=== PATIENT | female | born 1950 | race Caucasian/White ===

== ENCOUNTER 2018-06-21 10:36 | Inpatient (IN) | payer MEDICARE ==
[2018-06-21] VITALS (10 sets, daily range): BP systolic 89–127; BP diastolic 47–72
[~2018-06-21] VITALS: Ht 162.6 cm; Wt 102.1 kg
--- NOTE | ~2018-06-21 | DS ---
PATIENT:AILYN DALEY :50 MEDICAL RECORD: [id number] DISCHARGE SUMMARY ADMISSION DATE: 06/21/18 DISCHARGE DATE: 06/25/18 PRINCIPAL DIAGNOSES: Ruptured appendicitis with localized peritonitis. OTHER DIAGNOSES: Include neuropathy, hypercholesterolemia, hypothyroidism on replacement therapy, hypertension, gastroesophageal reflux, osteoporosis. HOSPITAL COURSE: The patient was admitted through the Emergency Room. She underwent a laparoscopic appendectomy. She was maintained on IV antibiotics. The drain has been removed. She is being dismissed home on Levaquin, Flagyl, Colace, and Blackfoot. I will see her in the office in 1 week to remove her kannan. TRANSINT:[id number] Voice Confirmation ID: [id number] DOCUMENT ID: [id number] MARIE HERNÁNDEZ MD at 1645 CC: [id number] DICTATION DATE: 06/25/18 185 CYCLE COUNTER: 06/26/18 0704 DIS IN 06/25/[address] [facility] [address] [place] [address]
--- NOTE | ~2018-06-21 | MORECARE ---
CASE MANAGEMENT DISCHARGE SUMMARY PATIENT: AILYN DALEY UNIT: [id number] ADM DATE: 06/21/18 AGE: 67 : 50 SEX: F ROOM/BED: D.2230 AUTHOR: MICHAELDOC PHYSICIAN: REFERRING PHYSICIAN: MARIE HERNÁNDEZ MD DATE OF SERVICE: 06/23/18 Discharge Plan Patient Name: AILYN DALEY Facility: [facility]:[place] : 1950 Planned Disposition: Home Anticipated Discharge Date: Discharge Date: Expected LOS: Initial Reviewer: [email or web address] Initial Review Date: 06/23/2018 Generated: 06/23/18 3:37 pm Comments DCP- Discharge Planning Updated by [email or web address]: Lynette Nichole on 06/23/18 1:[address] Patient Name: AILYN DALEY Admission Status: ER Accout number: [id number] Admission Date: 06-21-2018 : 1950 Admission Diagnosis:UNSPECIFIED APPENDICITIS Attending: MARIE HERNÁNDEZ Current LOS: 2 Anticipated DC Date: Planned Disposition: Home Primary Insurance: MEDICARE A & B Discharge Planning Comments: CM met with patient and her to discuss discharge planning. They have travelled her from [place] to visit their son while he was having an operation. Their son is home now and doing well. Patient states she is independent with all ADL's and IADL's. States she lives with her . States they drove their RV here. Declines any discharge needs at this time. CM will continue to follow and assist with discharge planning/needs. Certified Adapted Physical Educator: Lynette Nichole DCPIA - Discharge Planning Initial Assessment Updated by [email or web address]: Lynette Nichole on 06/23/18 2:28 pm * Is the patient Alert and Oriented? Yes * PCP Dr. Gay Rodriguez in [facility] * Preadmission Environment Home with Family * ADLs Independent * Equipment Cane Other Wheelchair * Other Equipment Battery operated wheelchair * List name and contact numbers for known caregivers / representatives who currently or will assist patient after discharge: Alexis farrar - [phone] * Verbal permission to speak to the caregivers and representatives has been obtained from the patient. Yes * Community resources currently utilized None * Additional services required to return to the preadmission environment? No * Can the patient safely return to the preadmission environment? Yes * Has this patient been hospitalized within the prior 30 days at any hospital? No Last DP export: 06/23/18 1:30 Patient Name: AILYN DALEY Page 11352 at 1437 All edits/amendments must be made on the electronic document DICTATION DATE: 06/23/181436 OPTOMECHANICAL ENGINEER: RICH 06/23/181436 RPT#: [id number] DC DATE: STATUS: ADM IN [facility] [address] [place] [address] END OF REPORT
--- NOTE | ~2018-06-21 | MORECARE ---
CASE MANAGEMENT DISCHARGE SUMMARY PATIENT: AILYN DALEY UNIT: [id number] ADM DATE: 06/21/18 AGE: 67 : 50 SEX: F ROOM/BED: D.2230 AUTHOR: MICHAELDOC PHYSICIAN: REFERRING PHYSICIAN: MARIE HERNÁNDEZ MD DATE OF SERVICE: 06/26/18 Discharge Plan Patient Name: AILYN DALEY Facility: [facility]:[place] : 1950 Planned Disposition: Home Anticipated Discharge Date: Discharge Date: 06/25/2018 Expected LOS: 0 Initial Reviewer: [email or web address] Initial Review Date: 06/23/2018 Generated: 06/26/18 10:55 am Comments DCP- Discharge Planning Updated by [email or web address]: Lynette Nichole on 06/23/18 1:[address] Patient Name: AILYN DALEY Admission Status: ER Accout number: [id number] Admission Date: 06-21-2018 : 1950 Admission Diagnosis:UNSPECIFIED APPENDICITIS Attending: MARIE HERNÁNDEZ Current LOS: 2 Anticipated DC Date: Planned Disposition: Home Primary Insurance: MEDICARE A & B Discharge Planning Comments: CM met with patient and her to discuss discharge planning. They have travelled her from [place] to visit their son while he was having an operation. Their son is home now and doing well. Patient states she is independent with all ADL's and IADL's. States she lives with her . States they drove their RV here. Declines any discharge needs at this time. CM will continue to follow and assist with discharge planning/needs. Heel Coverer: Lynette Nichole DCPIA - Discharge Planning Initial Assessment Updated by [email or web address]: Lynette Nichole on 06/23/18 2:28 pm * Is the patient Alert and Oriented? Yes * PCP Dr. Gay Rodriguez in [facility] * Preadmission Environment Home with Family * ADLs Independent * Equipment Cane Other Wheelchair * Other Equipment Battery operated wheelchair * List name and contact numbers for known caregivers / representatives who currently or will assist patient after discharge: Alexis farrar - [phone] * Verbal permission to speak to the caregivers and representatives has been obtained from the patient. Yes * Community resources currently utilized None * Additional services required to return to the preadmission environment? No * Can the patient safely return to the preadmission environment? Yes * Has this patient been hospitalized within the prior 30 days at any hospital? No Last DP export: 06/23/18 1:37 Patient Name: AILYN DALEY Page [id number] at 0955 All edits/amendments must be made on the electronic document DICTATION DATE: 06/26/18953 SAUSAGE MEAT TRIMMER: RICH 06/26/18953 RPT#: [id number] DC DATE:06/25/18 STATUS: DIS IN [facility] [address] [place] [address] END OF REPORT
--- NOTE | ~2018-06-21 | MORECARE ---
CASE MANAGEMENT DISCHARGE SUMMARY PATIENT: AILYN DALEY UNIT: [id number] ADM DATE: 06/21/18 AGE: 67 : 50 SEX: F ROOM/BED: D.2230 AUTHOR: ARCELIA RODRIGUEZ PHYSICIAN: REFERRING PHYSICIAN: MARIE HERNÁNDEZ MD DATE OF SERVICE: 06/23/18 Discharge Plan Patient Name: AILYN DALEY [facility] : 1950 Planned Disposition: Home Anticipated Discharge Date: Discharge Date: Expected LOS: Initial Reviewer: [email or web address] Initial Review Date: 06/23/2018 Generated: 06/23/18 3:30 pm DCPIA - Discharge Planning Initial Assessment Updated by [email or web address]: Lynette Nichole on 06/23/18 2:28 pm * Is the patient Alert and Oriented? Yes * PCP Dr. Gay Rodriguez in [facility] * Preadmission Environment Home with Family * ADLs Independent * Equipment Cane Other Wheelchair * Other Equipment Battery operated wheelchair * List name and contact numbers for known caregivers / representatives who currently or will assist patient after discharge: Alexis [facility] [phone] * Verbal permission to speak to the caregivers and representatives has been obtained from the patient. Yes * Community resources currently utilized None * Additional services required to return to the preadmission environment? No * Can the patient safely return to the preadmission environment? Yes * Has this patient been hospitalized within the prior 30 days at any hospital? No Patient Name: AILYN DALEY Page 39080 at 1430 All edits/amendments must be made on the electronic document DICTATION DATE: 06/23/181428 HULL LINE CREW MEMBER: RICH 06/23/18 142 RPT#: [id number] DC DATE: STATUS: ADM IN [facility] [address] [place] [address] END OF REPORT
--- NOTE | ~2018-06-21 | OP ---
PATIENT NAME: AILYN DALEY MEDICAL RECORD: [id number] :50 LOCATION:D.MS [place]30 ADMISSION DATE:06/21/18 SURGEON: MARIE HERNÁNDEZ MD DATE OF OPERATION: 06/21/2018 PREOPERATIVE DIAGNOSIS: Acute appendicitis. POSTOPERATIVE DIAGNOSES: 1. Gangrenous acute appendicitis with rupture and contamination. 2. Extensive intraabdominal adhesions. PROCEDURE: Diagnostic laparoscopy with conversion to exploratory laparotomy and open appendectomy. SURGEON: Marie Hernández MD PUBLIC HEALTH ASSISTANT: None. BLOOD LOSS: 200 cc. ANESTHESIA: General. COMPLICATIONS: None. DRAINS: Times one (19-Jordanian fully fluted round closed system drain). OPERATIVE FINDINGS: Upon entering the abdomen with the laparoscope, I identified extensive intraabdominal adhesions and it was going to be fruitless to continue further with a laparoscopic approach and perhaps hazards to do so, I elected to convert to an exploratory laparotomy at that time. OPERATIVE COURSE: The patient was conveyed to the operating room urgently on 06/21/2018. General anesthesia was induced by the anesthesia staff. The abdomen was sterilely prepped and draped. A small skin steve was accomplished in the left upper quadrant. A Veress needle was inserted through the skin steve into the peritoneal cavity. CO2 insufflation was begun. Once a sufficient pneumoperitoneum had been achieved, a 5-mm trocar was inserted through an incision in the left lower quadrant. During insertion of the trocar, I got a carmen of air back when I opened up the valve and then inserted the laparoscope and insufflated the abdomen. I identified extensive intraabdominal adhesions and I could identify immediately that it was going to be fruitless to continue further. The trocar was removed. A lower midline incision was accomplished. I entered the peritoneal cavity sharply. I then went about an extensive adhesiolysis. The adhesiolysis took 42 minutes. Most of the adhesions were grade I and grade II adhesions. There was some bruising of the bowel. Once I had freed up all the adhesions, I ran the accessible portion of the bowel and it appears that this was from the ligament of Treitz to the ileocecal valve. I identified the appendix. I took down the mesoappendix with the Super Jaw EnSeal device. Some omentum that was covered in exudate was removed also in a piecemeal fashion with the Super Jaw EnSeal device. I then stapled across the cecum with an Endo-TANESHA type stapler utilizing blue loads. The appendix was then sent to pathology. I irrigated in the pelvis. There were small pieces of fecal material that I could see in the irrigant. This is worrisome as this was a ruptured appendicitis and there obviously was some contamination with fecal material. I ran the small bowel again 3 more times. There was some bruised OPERATIVE REPORT [id number] THUY,AILYN areas on the small bowel, but I noted no enterotomies, no seromyotomies and no leakage of enteral contents. Visualized portion of the colon were normal with the exception of an inflamed cecum. I irrigated some more and aspirated. There was no bleeding. I ensured that the small bowel was not twisted on its mesentery. I brought out a 19-Jordanian closed suction drain in the left lower quadrant. It was placed down into the pelvis. The drain was sutured to skin with a 2-0 nylon. The trocar site was then closed around the drain with a single 3-0 Vicryl suture. The midline fascia was closed with a running looped #1 PDS in a running horizontal mattress fashion. The subdermis was approximated with interrupted 3-0 Vicryls. The skin was approximated with metallic clips that were widely spaced. A sterile dressing was applied. The patient was then extubated and conveyed to post-anesthesia care unit where she was in stable condition. Due to the high risk of a postoperative abscess and postoperative complications, the patient will be admitted to the hospital and started on intravenous antibiotics. TRANSINT:[id number] Voice Confirmation ID: [id number] DOCUMENT ID: [id number] 06/25/2018 Edited to correct vinyl welder and fabricator errors, [email or web address]. MARIE HERNÁNDEZ MD at 1853 CC: [id number] DICTATION DATE: 06/21/182121 GREENHOUSE ASSISTANT: 06/22/[address] [facility] [address] [place] [address]
[2018-06-21] MEDS ORDERED: ZOCOR20 MG PO (10:43)
[2018-06-21] MEDS ORDERED: TIROSINT112 MCG PO (10:43)
[2018-06-21] MEDS ORDERED: NEURONTIN 400400 MG PO (10:43)
[2018-06-21] MEDS ORDERED: ROCALTROL0.5 MCG PO (10:43)
[2018-06-21] MEDS ORDERED: TOPROL XL50 MG PO (10:43)
[2018-06-21] MEDS ORDERED: BAYER CHEWABLE81 MG PO (10:44)
[2018-06-21] MEDS ORDERED: OMEPRAZOLE40 MG PO (10:44)
[2018-06-21] MEDS ORDERED: FLECAINIDE ACE100 MG PO (10:44)
[2018-06-21 11:15] LABS: BASOPHILS 0.1 % (0-2); EOSINOPHILS 0.2 % (0-7); HEMATOCRIT 38.4 % (36.0-48.0); HEMOGLOBIN 13.1 g/dL (12-16); IMMATURE GRANULOCYTES 0.3 % (0-5); MCH 30.5 pg (26.0-34.0); MCHC 34.1 g/dL (31.0-37.0); MCV 89.3 fL (80.0-100.0); MEAN PLATELET VOLUME 10.6 fL (7.4-10.4); NEUTROPHILS 81.4 % (40-80); PLATELET COUNT 216 10x3/uL (130-400); RDW 14.4 % (11.5-14.5); WBC 15.9 10x3/uL (4.8-10.8)
[2018-06-21 11:22] LABS: APPEARANCE HAZY (CLEAR); BILIRUBIN NEGATIVE (NEGATIVE); COLOR YELLOW (YELLOW); GLUCOSE NEGATIVE (NEGATIVE); KETONE SMALL mg/dL (NEGATIVE); NITRITE NEGATIVE (NEGATIVE); PROTEIN 1+ mg/dL (NEGATIVE); UROBILINOGEN NORMAL (NORMAL)
[2018-06-21 11:24] LABS: AMORPHOUS SEDIMENT <1+ /lpf (NONE SEEN); BACTERIA FEW /hpf (NONE SEEN); EPITHELIAL CELLS OCC /hpf (0-5); WHITE CELLS - URINE 0-5 /hpf (0-5)
[2018-06-21 11:34] LABS: ALBUMIN 3.4 g/dL (3.4-5.0); ALKALINE PHOSPHATASE 66 U/L (46-116); ALT (SGPT) 19 U/L (10-68); BILIRUBIN - TOTAL 1.25 mg/dL (0.2-1.3); CALC OSMOLALITY 267 mosm/kg (275-300); CALCIUM 8.2 mg/dL (8.5-10.1); CARBON DIOXIDE 19.7 mmol/L (21.0-32.0); CHLORIDE - SERUM 98 mmol/L (98-107); CREATININE - SERUM 1.5 mg/dL (0.6-1.3); GLUCOSE 105 mg/dL (74-106); POTASSIUM - SERUM 3.3 mmol/L (3.5-5.1); PROTEIN - SERUM 7.5 g/dL (6.4-8.2); SODIUM 132 mmol/L (136-145); UREA NITROGEN 22 mg/dL (7-18); eGFR NON AFRICAN AMERICAN 37 mL/min (90-120)
[2018-06-21 11:37] LABS: AMYLASE - SERUM 27 U/L (25-115); LIPASE 75 U/L (73-393)
[2018-06-21 11:38] LABS: TROPONIN-I < 0.017 ng/mL (0.000-0.060)
[2018-06-22] VITALS (9 sets, daily range): BP systolic 94–130; BP diastolic 53–76
[2018-06-22 07:43] LABS: BASOPHILS 0 % (0-2); EOSINOPHILS 0 % (0-7); HEMATOCRIT 35.3 % (36.0-48.0); HEMOGLOBIN 11.5 g/dL (12-16); IMMATURE GRANULOCYTES 0.2 % (0-5); LYMPHOCYTES 3.8 % (15-50); MCH 29.5 pg (26.0-34.0); MCHC 32.6 g/dL (31.0-37.0); MCV 90.5 fL (80.0-100.0); MEAN PLATELET VOLUME 11.1 fL (7.4-10.4); MONOCYTES 4.6 % (2-11); NEUTROPHILS 91.4 % (40-80); PLATELET COUNT 184 10x3/uL (130-400); RDW 14.6 % (11.5-14.5)
[2018-06-22 07:47] LABS: WBC 11.2 10x3/uL (4.8-10.8)
[2018-06-22 08:08] LABS: ALBUMIN 2.6 g/dL (3.4-5.0); ALKALINE PHOSPHATASE 53 U/L (46-116); ALT (SGPT) 21 U/L (10-68); BILIRUBIN - TOTAL 0.53 mg/dL (0.2-1.3); CALC OSMOLALITY 273 mosm/kg (275-300); CALCIUM 7.1 mg/dL (8.5-10.1); CARBON DIOXIDE 17.6 mmol/L (21.0-32.0); CHLORIDE - SERUM 104 mmol/L (98-107); GLUCOSE 143 mg/dL (74-106); PHOSPHOROUS 2.7 mg/dL (2.5-4.9); PROTEIN - SERUM 6.4 g/dL (6.4-8.2); SODIUM 135 mmol/L (136-145); TROPONIN-I < 0.017 ng/mL (0.000-0.060); UREA NITROGEN 17 mg/dL (7-18)
[2018-06-22 08:09] LABS: CREATININE - SERUM 1.1 mg/dL (0.6-1.3); eGFR NON AFRICAN AMERICAN 52 mL/min (90-120)
[2018-06-23 04:19] VITALS: BP 133/80
[2018-06-23 09:23] VITALS: BP 130/85
[2018-06-23 12:17] VITALS: BP 164/94
[2018-06-23 12:56] VITALS: Ht 162.6 cm; Wt 102.1 kg
[2018-06-23 20:00] VITALS: BP 139/84
[2018-06-24] VITALS (7 sets, daily range): BP systolic 119–140; BP diastolic 64–99
[2018-06-24 05:36] LABS: BASOPHILS 0.1 % (0-2); HEMATOCRIT 35.4 % (36.0-48.0); HEMOGLOBIN 11.9 g/dL (12-16); IMMATURE GRANULOCYTES 0.4 % (0-5); LYMPHOCYTES 12.6 % (15-50); MCH 29.8 pg (26.0-34.0); MCHC 33.6 g/dL (31.0-37.0); MCV 88.7 fL (80.0-100.0); MONOCYTES 7.1 % (2-11); NEUTROPHILS 78.8 % (40-80); RBC 3.99 10x6/uL (4.00-5.40); RDW 14.6 % (11.5-14.5); WBC 9.6 10x3/uL (4.8-10.8)
[2018-06-24 05:51] LABS: PLATELET COUNT 273 10x3/uL (130-400)
[2018-06-24 06:06] LABS: ALBUMIN 2.2 g/dL (3.4-5.0); BILIRUBIN - TOTAL 0.62 mg/dL (0.2-1.3); CREATININE - SERUM 0.9 mg/dL (0.6-1.3); MAGNESIUM - SERUM 1.9 mg/dL (1.8-2.4); PROTEIN - SERUM 5.9 g/dL (6.4-8.2)
[2018-06-24 06:22] LABS: ANION GAP 17.2 mmol/L (8-16); CALCIUM 6.5 mg/dL (8.5-10.1); PHOSPHOROUS 0.9 mg/dL (2.5-4.9); POTASSIUM - SERUM 3.2 mmol/L (3.5-5.1)
[2018-06-25 08:30] VITALS: BP 129/25
[2018-06-25 12:59] VITALS: BP 128/90
[2018-06-25 16:14] VITALS: BP 140/82
== END 2018-06-25 22:14 | disposition home or self-care (01) | DRG 340 ==
LOC: D.ER 10:36 → D.EDHOLD 14:52 → D.MS 14:52
PROVIDERS: Family Medicine; Surgery
PROC: 0DTJ0ZZ Resection of Appendix, Open Approach (ICD-10-PCS; principal; 2018-06-21 17:00)
PROC: 0DJD4ZZ Inspection of Lower Intestinal Tract, Percutaneous Endoscopic Approach (ICD-10-PCS; 2018-06-21 17:00)
DX: K35.32 Acute appendicitis with perforation, localized peritonitis, and gangrene, without abscess (principal); K35.891 Other acute appendicitis without perforation, with gangrene; I10 Essential (primary) hypertension; K66.0 Peritoneal adhesions (postprocedural) (postinfection)